=== PATIENT | female | born 1975 ===

== ENCOUNTER 2018-07-10 17:47 | Emergency (ER) | payer SELFPAY ==
[~2018-07-10] VITALS: Ht 152.4 cm; Wt 62.2 kg
[~2018-07-10 17:47] MED LIST: IBUP-1050 PO; IRON SUPPLEMENT PO; PRENTAB26 PO; [UNRECOGNIZED DRUG - CODE] PO
[2018-07-10 18:05] VITALS: TEMP 36.6; Ht 152.4 cm; Wt 62.2 kg
[2018-07-10] MEDS ORDERED: IBUPROFEN 600 MG TAB PO STA (18:59)
[2018-07-10] MEDS ORDERED: LIDOCAINE/EPINEPHRINE 1% 20 ML VIAL INFIL ONE (19:00)
--- NOTE | 2018-07-10 19:23 | EMERGENCY ROOM VISIT NOTE ---
ED Visit Note First contact with patient: 18:53 CHIEF COMPLAINT: Infection of the right breast HISTORY OF PRESENT ILLNESS: This 42-year-old female patient presents to the emergency department by private vehicle after they noticed a hard, red, tender area on the inner right breast started about 2 days ago. Patient states she has a history of a sebaceous cyst in this area, she states she had it surgically removed about 1 year ago, but she thinks they did not get all of the cyst. She states that she had a mammogram 2 days ago during which time they noticed a fluid collection in this area, he has become red, swollen, and painful since the mammogram. It is slowly getting larger, more painful and tender. No fever, chills, or loss of appetite. There has been a small amount of thick yellow drainage from the area. They rate the pain as throbbing and 8/ 10. Tetanus shot is up to date. They have tried Tylenol with some improvement. The patient is not diabetic. She denies any symptoms of headache , chest pain, shortness of breath, abdominal pain or back pain, urinary symptoms , or unusual rash. REVIEW OF SYSTEMS: A complete 10 point review of systems was reviewed with the patient with pertinent positives and negatives as per history of present illness. All else were negative. ALLERGIES: No known allergies. MEDICATIONS: Reviewed in chart, see below. PMH: Previous sebaceous cyst. SOCIAL HISTORY: Lives at home. She denies tobacco use. PHYSICAL EXAM: Vital Signs: Reviewed Nurse's notes, vital signs stable. GENERAL : Pleasant and cooperative, no acute distress, non toxic in appearance, well- developed well-nourished. SKIN: There is an erythematous indurated area on the right mid breast which measures about 4 cm x 6 cm. It is fluctuant but there is no pointing or drainage. There is a zone of inflammation around it but no lymphangitis. There is an overlying scar consistent with previous surgical incision. Capillary refill less than 2 seconds. MUSCULOSKELETAL: There is no limitation of the range of motion of the upper extremities. EMERGENCY DEPARTMENT COURSE: I examined the patient. Bedside ultrasound was used to confirm a well circumscribed fluid collection consistent with cystic structure. Verbal consent was obtained to perform the procedure. After saline and Betadine cleansing and to mL of 1% buffered lidocaine with epinephrine anesthesia, the abscess was incised with a number 11 scalpel blade. A large amount of purulent material was released with more expressed by pressure. A swab was obtained for culture. The abscess cavity was further probed with a needle dedicated truck driver and the deep pocket expressed. The abscess cavity was then copiously irrigated with sterile saline under pressure. The area was then packed with bacitracin soaked packing. The area was cleaned with sterile saline and dressed with bacitracin and a bulky bandage. The patient tolerated the procedure well. Patient was educated regarding wound care, close follow-up in ED return for packing removal, and return precautions should her symptoms worsen, she verbalized understanding. Patient was discharged home in stable condition and ambulatory. Current/Historical Medications Scheduled Acetaminophen (Tylenol Supp), 325-650 MG PO Q4-6HR PRN Ibuprofen (Advil), 200-600 MG PO Q4-6HR PRN Multivit/Min/Iron/Fol Ac/Pren ( Vitamin), 1 TAB PO DAILY [Iron Supplement], MG PO UD Allergies Coded Allergies: No Known Allergies (Verified , 02/06/10) Vital Signs Date Time Temp Pulse Resp B/P (MAP) Pulse Ox O2 Delivery O2 Flow Rate FiO2 07/10/18 20:20 85 18 127/82 99 07/10/18 18:05 36.6 83 18 128/85 100 Room Air Medications Administered Medications (Trade) Dose Ordered Sig/Sonny Route Start Time Stop Time Status Last Admin Dose Admin Ibuprofen (Motrin Tab) 600 mg NOW STAT PO 07/10/18 18:59 07/10/18 19:01 DC 07/10/18 19:12 600 MG Departure Information Impression Primary Impression: Sebaceous cyst of breast Dispostion Home / Self-Care Condition GOOD Referrals Marv Andrade M.D. (PCP) Leslee Mclean MD Patient Instructions ED Cyst Sebaceous Infec IandD, [facility] Additional Instructions You were seen in the Emergency Department for Incision and Drainage of your right breast cyst. You will NEED to return to the Emergency Department to have the packing removed/changed in 48 hours. This packing is NOT dissolvable and WILL need to be removed by a health care provider. Try to leave the packing in place until you return to the Emergency Department. When you return to the emergency department, ask for Aicha Borjas, Nurse Practitioner. Please bring the bottle of packing material with you to your visit. Proper wound care is essential for adequate wound healing and infection prevention. You can shower and clean the wound with soap and water. Do not scour over the wound. Pat dry with a towel. Do not submerse the wound (i.e. bathe or dish wash) until the sutures have been removed. You can use an antibiotic ointment with a dressing over the wound for the next 3-4 days. After this time you may leave the wound dry and open to the air. If crust develops over the wound you can use a Q-tip to apply a 1:1 peroxide:water solution to clean the wound. Look for signs of worsening infection of the wound including: increased pain, increased redness or swelling, foul discharge, streaking, or fevers/chills. If any of these are noticed you should return to the Emergency Department for further assessment and treatment. As with any laceration you may have received nerve damage to the surrounding tissues. This damage may or may not be permanent. For pain control, you can use the following [id number] medicines (if >12 yo): - Extra strength (500mg/tab) Tylenol (acetaminophen) 1-2 tabs every 6-8 hours as needed. Do not exceed 6 tablets in a 24 hour period. Avoid taking more than 3 grams (3000 mg) of Tylenol per day. This includes any other sources of acetaminophen you may take on a regular basis. - Regular strength (200 mg/tab) Advil (ibuprofen) 3 tabs every 6-8 hours as needed. Do not exceed a dose of 2400 mg per day. Return to the emergency department if your symptoms worsen despite treatment course outlined above. You have been provided with the referral information for Dr. Mclean, general surgery. Please contact his office to set up an appointment for follow-up regarding long-term management of your cyst. Work Instructions Return To Work: 3 days Problem Qualifiers Primary Impression: Sebaceous cyst of breast Laterality: right Qualified Codes: N60.81 - Other benign mammary dysplasias of right breast
[2018-07-10 20:20] VITALS: BP 127/82; PULSE 85; O2SAT 99
== END 2018-07-10 20:10 | disposition home or self-care (01) ==
LOC: C.EDB 17:49 → C.EDD 20:10
DX: N60.81 Other benign mammary dysplasias of right breast (principal); Z98.890 Other specified postprocedural states